=== PATIENT | male | born 1965 | race Caucasian/White ===

== ENCOUNTER 2025-10-12 11:57 | Inpatient (IN) | payer OTHER ==
[~2025-10-12] VITALS: Ht 180.3 cm; Wt 83.3 kg
[2025-10-12] MEDS ORDERED: Diazepam 5 MG / ML 2ML SYR IV ONE ×2 (12:20→13:10)
[2025-10-12 12:38] LABS: Hematocrit 49.0 % (37.0-53.0); Hemoglobin 17.5 g/dL (13.5-17.5); Mean Corpuscular HGB Conc 35.7 g/dL (31.5-36.5); Mean Corpuscular Volume 87 fL (80-100); NRBC ABSOLUTE 0.00 K/mm3 (0.00-0.02); NRBC Auto 0.0 /100 WBC (0.0-0.2); Platelet Count 405 K/mm3 (150-400); RDW Coefficient Variation 13.1 % (11.7-14.2); RDW Standard Deviation 42.0 fL (35.1-46.3)
[2025-10-12 12:57] LABS: BASOPHILS ABSOLUTE MAN 0.32 K/mm3 (0.00-0.23); BASOPHILS PERCENT MAN 2 % (0-2); EOSINOPHILS ABSOLUTE MAN 0.00 K/mm3 (0.00-0.68); EOSINOPHILS PERCENT MAN 0 % (0-6); LYMPHOCYTES ABSOLUTE MAN 4.77 K/mm3 (0.84-5.20); LYMPHOCYTES PERCENT MAN 29 % (21-46); MONOCYTES ABSOLUTE MAN 0.16 K/mm3 (0.16-1.47); MONOCYTES PERCENT MAN 1 % (4-13); NEUTROPHILS ABSOLUTE MAN 11.19 K/mm3 (1.96-9.15); SEG NEUTROPHILS PERCENT MAN 68 % (41-73)
[2025-10-12] MEDS ORDERED: NS 1,000 ML IV SCH ×2 (13:10→20:05)
[2025-10-12] MEDS ORDERED: Ondansetron HCl 2 MG / ML 2ML Vial IV PRN ×2 (13:10→20:10)
[2025-10-12 13:50] LABS: Alanine Aminotransfer (ALT/SGP 65.0 U/L (12-78); Albumin, Blood 4.3 g/dL (3.4-5.0); Albumin/Globulin Ratio 1.1 (0.8-1.8); Anion Gap 24.0 mmol/L (3-11); Aspartate Aminotrans (AST/SGOT 89.0 U/L (12-37); Bilirubin, Total 0.6 mg/dL (0.1-1.0); Blood Urea Nitrogen 11.0 mg/dL (8-24); CO2, Blood 21.0 mmol/L (21-32); Calcium, Blood 9.2 mg/dL (8.5-10.1); Chloride, Blood 96.0 mmol/L (98-108); Creatinine, Blood 0.48 mg/dL (0.60-1.20); Ethanol (Alcohol), Blood, Med 365.0 mg/dL; Globulin, Blood 3.8 g/dL (2.2-4.0); Glucose, Blood 103.0 mg/dL (70-99); Potassium, Blood 3.5 mmol/L (3.5-5.5); Sodium, Blood 137.0 mmol/L (136-145); Total Protein, Blood 8.1 g/dL (6.4-8.2)
[2025-10-12] MEDS ORDERED: NS 1,000 ML BAG IR SCH (14:15)
[2025-10-12 14:31] LABS: pH Blood Venous 7.40 (7.34-7.37)
[2025-10-12 16:00] LABS: Alanine Aminotransfer (ALT/SGP 62.0 U/L (12-78); Albumin, Blood 3.8 g/dL (3.4-5.0); Albumin/Globulin Ratio 1.2 (0.8-1.8); Anion Gap 19.0 mmol/L (3-11); Aspartate Aminotrans (AST/SGOT 76.0 U/L (12-37); Bilirubin, Total 0.6 mg/dL (0.1-1.0); Blood Urea Nitrogen 12.0 mg/dL (8-24); CO2, Blood 25.0 mmol/L (21-32); Calcium, Blood 8.2 mg/dL (8.5-10.1); Chloride, Blood 99.0 mmol/L (98-108); Creatinine, Blood 0.54 mg/dL (0.60-1.20); Globulin, Blood 3.2 g/dL (2.2-4.0); Glucose, Blood 80.0 mg/dL (70-99); Potassium, Blood 2.9 mmol/L (3.5-5.5); Sodium, Blood 140.0 mmol/L (136-145); Total Protein, Blood 7.0 g/dL (6.4-8.2)
[2025-10-12] MEDS ORDERED: LORazepam 2 MG/ML 1ML Injection IV ONE ×2 (17:15→20:00)
[2025-10-12] MEDS ORDERED: DiphenhydrAMINE HCl 50 MG/ML 1ML Vial IV ONE (17:15)
[2025-10-12] MEDS ORDERED: Pantoprazole Sodium 40 MG Injection IV ONE (19:20)
[2025-10-12] MEDS ORDERED: LORazepam 2 MG/ML 1ML Injection IV PRN ×2 (20:10)
[2025-10-12] MEDS ORDERED: FLU VACC TS2025-26(6MOS UP)/PF 45 MCG/0.5 ML SYRINGE IM SCH (20:15)
[2025-10-12 22:11] VITALS: BP 159/103
[2025-10-12] MEDS ORDERED: METFORMIN HCL500 M3 PO (22:44)
[2025-10-13] VITALS (20 sets, daily range): BP systolic 140–174; BP diastolic 86–114
[2025-10-13] MEDS ORDERED: Insulin Human Lispro 100 Units/ML 3ML Syringe SC SCH
[2025-10-13] MEDS ORDERED: OMEP20ER PO (00:57)
[2025-10-13] MEDS ORDERED: ESCI20 PO (00:58)
[2025-10-13] MEDS ORDERED: BUSPIRONE HCL7.5 M6 PO (00:59)
[2025-10-13] MEDS ORDERED: MAGNESIUM OXID400 M1 PO (01:00)
[2025-10-13 03:54] LABS: BASOPHILS ABSOLUTE AUTO 0.14 K/mm3 (0.00-0.23); BASOPHILS PERCENT AUTO 1 % (0-2); EOSINOPHILS ABSOLUTE AUTO 0.25 K/mm3 (0.00-0.68); EOSINOPHILS PERCENT AUTO 2 % (0-6); Hematocrit 38.1 % (37.0-53.0); Hemoglobin 13.6 g/dL (13.5-17.5); IMMATURE GRAN ABSOLUTE AUTO 0.03 K/mm3 (0.00-0.10); IMMATURE GRAN PERCENT AUTO 0 % (0-1); LYMPHOCYTES ABSOLUTE AUTO 2.49 K/mm3 (0.84-5.20); LYMPHOCYTES PERCENT AUTO 23 % (21-46); MONOCYTES ABSOLUTE AUTO 0.54 K/mm3 (0.16-1.47); MONOCYTES PERCENT AUTO 5 % (4-13); Mean Corpuscular HGB Conc 35.7 g/dL (31.5-36.5); Mean Corpuscular Volume 88 fL (80-100); NEUTROPHILS ABSOLUTE AUTO 7.50 K/mm3 (1.96-9.15); NEUTROPHILS PERCENT AUTO 69 % (41-73); NRBC ABSOLUTE 0.00 K/mm3 (0.00-0.02); NRBC Auto 0.0 /100 WBC (0.0-0.2); Platelet Count 226 K/mm3 (150-400); RDW Coefficient Variation 13.1 % (11.7-14.2); RDW Standard Deviation 42.5 fL (35.1-46.3)
[2025-10-13 04:11] LABS: Anion Gap 12.0 mmol/L (3-11); Blood Urea Nitrogen 12.0 mg/dL (8-24); CO2, Blood 29.0 mmol/L (21-32); Calcium, Blood 8.0 mg/dL (8.5-10.1); Chloride, Blood 95.0 mmol/L (98-108); Creatinine, Blood 0.48 mg/dL (0.60-1.20); Glucose, Blood 208.0 mg/dL (70-99); Magnesium, Blood 1.4 mg/dL (1.6-2.4); Potassium, Blood 2.6 mmol/L (3.5-5.5); Sodium, Blood 133.0 mmol/L (136-145)
[2025-10-13] MEDS ORDERED: Magnesium Sulf 2 GM/Water 50ML 50 ML IV ONE (05:30)
[2025-10-13] MEDS ORDERED: Potassium Chl 20MEQ/Water100ML 100 ML IV SCH (06:00)
--- NOTE | 2025-10-13 06:09 | NUR ---
SHIFT SUMMARY PATIENT ARRIVED TO PCU 10 VIA STRETCHER AT 2210. SLIDE TRANSFER COMPLETED. PATIENT ALERT AND ORIENTED X4. MEDICATED PER EMAR FOR ALCOHOL WITHDRAWL. ON ROOM AIR WITH SPO2 >90%. VITAL SIGNS STABLE. NO ACUTE ISSUES NOTED OVERNIGHT. WILL CONTINUE TO MONITOR. CALL LIGHT WITHIN REACH.
[2025-10-13] MEDS ORDERED: LORazepam 2 MG/ML 1ML Injection IV PRN ×2 (08:55→09:00)
[2025-10-13] MEDS ORDERED: Multivitamins 1 Tab PO SCH (09:00)
[2025-10-13] MEDS ORDERED: Folic Acid 1 MG TAB PO SCH (09:00)
[2025-10-13] MEDS ORDERED: Enoxaparin 40 MG/0.4 ML SYR SC SCH (09:00)
[2025-10-13] MEDS ORDERED: HydrALAZINE HCl 20 MG / ML 1ML Vial IV PRN (10:00)
[2025-10-13 10:37] LABS: Anion Gap 12.0 mmol/L (3-11); Blood Urea Nitrogen 10.0 mg/dL (8-24); CO2, Blood 30.0 mmol/L (21-32); Calcium, Blood 8.8 mg/dL (8.5-10.1); Chloride, Blood 97.0 mmol/L (98-108); Creatinine, Blood 0.43 mg/dL (0.60-1.20); Glucose, Blood 198.0 mg/dL (70-99); Potassium, Blood 3.2 mmol/L (3.5-5.5); Sodium, Blood 136.0 mmol/L (136-145)
--- NOTE | 2025-10-13 14:07 | NUR ---
Pt. is awake in bed and welcomes my visit. Pt. is quietly pleasant and displays evidence of being groggy. Facilitated a life review and the pt. verbalized that he has had many stresses in his life and that he lives in [place]. Listen with empathy and interest. Prayed with the Pt. Pt. verbalized gratitude for the spiritual care visit.
[2025-10-13] MEDS ORDERED: Insulin Regular 100 UNIT/ML 10ML Vial SC SCH (18:00)
--- NOTE | 2025-10-13 18:16 | NUR ---
END OF SHIFT SUMMARY PT IS A/O X4, ABLE TO MAKE TO MAKE NEEDS KNOWN AND CAN MOVE EXTREMITIES EQUALLY AND BILATERALLY. PT REPORTS PAIN, MEDICATED PER EMAR. CIWA SCORES RANGE: 10-14, MEDICATED PER EMAR. CONTINUOUS CARDIAC IN PLACE SHOWING SR-ST, SBP 140'S-170'S. HR IN THE 90'S-120'S. PT IS ON RA WITH SP02 >92%. PT HAD A BM THIS SHIFT AND USED URINAL INDEPENDENTLY. PT IS 2 PERSON ASSIST TO BSC. RUE PIV IS IN PLACE. BED IN LOWEST POSITION, CALL LIGHT IN REACH, WILL REPORT TO ONCOMING SHIFT.
[2025-10-14] VITALS (7 sets, daily range): BP systolic 127–165; BP diastolic 90–118
--- NOTE | 2025-10-14 04:41 | NUR ---
ASSUMED CARE OF PT AT 1900. PT ON CIWA PROTOCOL AND RECEIVING ATIVAN AND LIBRIUM PRN. PT HIGHEST CIWA SCORE THIS EVENING WAS 20. PT IS AXOX4 AND ABLE TO USE CALL LIGHT APPROPRIATELY. COMPLAINS OF BODY ACHES ALL OVER AND JUST NOT FEELING WELL. PT HAS BEEN INTERMITTENTLY TACHYCARDIC THROUGHOUT THE NIGHT AND BP ELEVATED WHEN RESTLESS BUT TRENDS DOWN ONCE PRN MEDS ADMINISTERED. ALL OTHER VSS. BED IN LOWEST POSITION AND CALL LIGHT WITHIN REACH
[2025-10-14 04:57] LABS: BASOPHILS ABSOLUTE AUTO 0.06 K/mm3 (0.00-0.23); BASOPHILS PERCENT AUTO 1 % (0-2); EOSINOPHILS ABSOLUTE AUTO 0.29 K/mm3 (0.00-0.68); EOSINOPHILS PERCENT AUTO 3 % (0-6); Hematocrit 38.9 % (37.0-53.0); Hemoglobin 13.7 g/dL (13.5-17.5); IMMATURE GRAN ABSOLUTE AUTO 0.03 K/mm3 (0.00-0.10); IMMATURE GRAN PERCENT AUTO 0 % (0-1); LYMPHOCYTES ABSOLUTE AUTO 2.07 K/mm3 (0.84-5.20); LYMPHOCYTES PERCENT AUTO 24 % (21-46); MONOCYTES ABSOLUTE AUTO 0.36 K/mm3 (0.16-1.47); MONOCYTES PERCENT AUTO 4 % (4-13); Mean Corpuscular HGB Conc 35.2 g/dL (31.5-36.5); Mean Corpuscular Volume 88 fL (80-100); NEUTROPHILS ABSOLUTE AUTO 5.99 K/mm3 (1.96-9.15); NEUTROPHILS PERCENT AUTO 68 % (41-73); NRBC ABSOLUTE 0.00 K/mm3 (0.00-0.02); NRBC Auto 0.0 /100 WBC (0.0-0.2); Platelet Count 159 K/mm3 (150-400); RDW Coefficient Variation 12.9 % (11.7-14.2); RDW Standard Deviation 41.9 fL (35.1-46.3)
[2025-10-14 05:15] LABS: Alanine Aminotransfer (ALT/SGP 49.0 U/L (12-78); Albumin, Blood 3.1 g/dL (3.4-5.0); Albumin/Globulin Ratio 1.0 (0.8-1.8); Anion Gap 7.0 mmol/L (3-11); Aspartate Aminotrans (AST/SGOT 55.0 U/L (12-37); Bilirubin, Total 1.0 mg/dL (0.1-1.0); Blood Urea Nitrogen 6.0 mg/dL (8-24); CO2, Blood 30.0 mmol/L (21-32); Calcium, Blood 8.5 mg/dL (8.5-10.1); Chloride, Blood 102.0 mmol/L (98-108); Creatinine, Blood 0.38 mg/dL (0.60-1.20); Globulin, Blood 3.2 g/dL (2.2-4.0); Glucose, Blood 186.0 mg/dL (70-99); Potassium, Blood 2.7 mmol/L (3.5-5.5); Sodium, Blood 136.0 mmol/L (136-145); Total Protein, Blood 6.3 g/dL (6.4-8.2)
[2025-10-14 05:33] LABS: Magnesium, Blood 1.4 mg/dL (1.6-2.4)
[2025-10-14] MEDS ORDERED: Magnesium Sulf 2 GM/Water 50ML 50 ML IV ONE (06:15)
[2025-10-14] MEDS ORDERED: Insulin Glargine 100 Unit/ML 3 ML SYR SC SCH (09:00)
[2025-10-14] MEDS ORDERED: Insulin Human Lispro 100 Units/ML 3ML Syringe SC SCH (12:00)
[2025-10-14] MEDS ORDERED: ALOGLIPTIN25 M7 PO (12:28)
[2025-10-14] MEDS ORDERED: PROAIR RESPICL90 MCG INH (12:29)
[2025-10-14] MEDS ORDERED: OMEP20ER PO (12:30)
[2025-10-14] MEDS ORDERED: ESCI20 PO (12:31)
--- NOTE | 2025-10-14 16:39 | NUR ---
UPDATE PT CALLED AND ASKED FOR UPDATE AND CLARIFICATION ON TREATMENT PLAN. PT UPDATED AND WITHDRAWAL PROTOCOL EXPLAINED TO PT .
--- NOTE | 2025-10-14 18:47 | NUR ---
SHIFT SUMMARY PT A/OX3. PT FOLLOWING COMMANDS AND USING CALL LIGHT APPROPIATE. PT EXPRESSED ANXIETY THROUGHOUT SHIFT ASKING FOR "ANXIETY SHOT" FREQUENTLY. PT CIWA RANGE 2-15, TREATED PER PROTOCOL. PT EXPRESSED FRUSTRATION ABOUT TREATMENT PLAN STATING THAT HE DID NOT FEEL THOUGH STAFF WAS GIVING ENOUGH ANXIETY MEDICATIONS. PT EDUCATED ON PROTOCOL AND MAX DOSES AVAILABLE. PT USING URINAL IN BED. PT UPDATED ON PLAN OF CARE. PT EXPRESSED THAT HE WAS WANTING TO LEAVE AMA, PT EDUCATED ON RISKS OF LEAVING AMA, PT CURRENTLY AGREEBLE TO STAY. PT INDEPENDENT IN BED.
[2025-10-14 20:28] LABS: Anion Gap 11.0 mmol/L (3-11); Blood Urea Nitrogen 6.0 mg/dL (8-24); CO2, Blood 27.0 mmol/L (21-32); Calcium, Blood 8.8 mg/dL (8.5-10.1); Chloride, Blood 100.0 mmol/L (98-108); Creatinine, Blood 0.54 mg/dL (0.60-1.20); Glucose, Blood 257.0 mg/dL (70-99); Potassium, Blood 3.2 mmol/L (3.5-5.5); Sodium, Blood 135.0 mmol/L (136-145)
[2025-10-15 04:42] VITALS: BP 144/99
--- NOTE | 2025-10-15 05:12 | NUR ---
PT AXOX4 AND ABLE TO USE CALL LIGHT APPROPRIATELY. PT REMAINS ON CIWA PROTOCOL. CIWA SCORE HAS RANGED BETWEEN 1-9 THROUGHOUT THE NIGHT. NOT REQUIRING PRN CIWA MEDS FREQUENTLY. MALEWICK ON AND IN PLACE. PT CONTINUING TO DUMP URINE. K+ WAS RECHECKED AT THE START OF SHIFT AND WAS 3.2. POTASSIUM REPLACED AND AWAITING RECHECK RESULTS. BP OCCASIONALLY ELEVATED BUT NOT REQUIRING PRN BP MEDS. BED IN LOWEST POSITION AND CALL LIGHT WITHIN REACH.
[2025-10-15 06:21] LABS: Alanine Aminotransfer (ALT/SGP 58.0 U/L (12-78); Albumin, Blood 2.9 g/dL (3.4-5.0); Albumin/Globulin Ratio 1.0 (0.8-1.8); Anion Gap 8.0 mmol/L (3-11); Aspartate Aminotrans (AST/SGOT 58.0 U/L (12-37); Bilirubin, Total 0.4 mg/dL (0.1-1.0); Blood Urea Nitrogen 7.0 mg/dL (8-24); CO2, Blood 26.0 mmol/L (21-32); Calcium, Blood 8.4 mg/dL (8.5-10.1); Chloride, Blood 103.0 mmol/L (98-108); Creatinine, Blood 0.44 mg/dL (0.60-1.20); Globulin, Blood 3.0 g/dL (2.2-4.0); Glucose, Blood 261.0 mg/dL (70-99); Magnesium, Blood 1.3 mg/dL (1.6-2.4); Phosphorus, Blood 3.2 mg/dL (2.5-4.9); Potassium, Blood 2.9 mmol/L (3.5-5.5); Sodium, Blood 134.0 mmol/L (136-145); Total Protein, Blood 5.9 g/dL (6.4-8.2)
[2025-10-15] MEDS ORDERED: Magnesium Sulf 2 GM/Water 50ML 50 ML IV SCH (06:45)
[2025-10-15] MEDS ORDERED: Magnesium Sulf 2 GM/Water 50ML 50 ML IV ONE (07:05)
[2025-10-15 07:17] VITALS: BP 164/111
[2025-10-15] MEDS ORDERED: Potassium Chl 20MEQ/Water100ML 100 ML IV STA (08:46)
[2025-10-15 10:42] VITALS: BP 156/105
--- NOTE | 2025-10-15 12:00 | NUR ---
REPORT GIVEN TO JIN LANCE TO ASSUME CARE.
[2025-10-15 13:56] VITALS: BP 141/102
--- NOTE | 2025-10-15 14:13 | NUR ---
TRANSFER OF CARE ASSUMED CARE OF PT APPROX 1230. PT ALERT, ABLE TO MAKE NEEDS KNOWN. VSS, HTN NOTED. UP TO CHAIR WITH PT. CIWA 10, MEDICATED WITH LIBRIUM PER EMAR. PT IN RECLINER WATCHING TV, CALL LIGHT IN REACH.
[2025-10-15 16:17] VITALS: BP 130/112
--- NOTE | 2025-10-15 16:58 | NUR ---
SHIFT SUMMARY NO ACUTE CHANGES SINCE CARE ASSUMPTION. VSS. PT AMBULATED W/ ASSISTANCE FROM RECLINER BACK TO BED. AWAITING DINNER. FOLLOWING COMMANDS AND USING CALL LIGHT APPRORPRIATELY. CALL LIGHT IN REACH, BED ALARM ON
[2025-10-15 19:28] VITALS: BP 154/105
[2025-10-16] VITALS (7 sets, daily range): BP systolic 130–164; BP diastolic 82–126
--- NOTE | 2025-10-16 05:00 | NUR ---
NOC SHIFT SUMMARY PT IS ALERT, ORIENTATED TO SITUATION, DATE (ASIDE FROM DAY0, HE KNOWNS HE IS IN THE HOSPITAL BUT WAS UNSURE OF THE NAME OR CITY HE WAS IN. HE EXPLAINED HES NOT FROM THIS AREA AND CAME HERE FOR REHAB. HE IS KIND AND COOPERATIVE WITH CARES, ABLE TO MAKE HIS NEEDS KNOWN TO STAFF. HE IS WEAK OVERALL AND BEEN IN BED THIS SHIFT, ABLE TO REPOSTION SELF. PURWICK IN PLACE DRAINING TO SUCTION. BED BATH COMPLETED AND LIEN CHANGED TONIGHT. RA SATTING >90%. BP ELAVATED, DENIES CHEST PAIN OR PRESSURE. CIWA 3-7, MEDICATED PER EMAR. IV FLUIDS INFUSING. BED IN LOWEST POSTION, BED ALARM ON FOR SAFETY. CALL LIGHT IN REACH.
[2025-10-16 05:35] LABS: Alanine Aminotransfer (ALT/SGP 84.0 U/L (12-78); Albumin, Blood 2.9 g/dL (3.4-5.0); Albumin/Globulin Ratio 1.0 (0.8-1.8); Anion Gap 7.0 mmol/L (3-11); Aspartate Aminotrans (AST/SGOT 72.0 U/L (12-37); Bilirubin, Total 0.4 mg/dL (0.1-1.0); Blood Urea Nitrogen 6.0 mg/dL (8-24); CO2, Blood 26.0 mmol/L (21-32); Calcium, Blood 8.4 mg/dL (8.5-10.1); Chloride, Blood 105.0 mmol/L (98-108); Creatinine, Blood 0.43 mg/dL (0.60-1.20); Globulin, Blood 2.9 g/dL (2.2-4.0); Glucose, Blood 222.0 mg/dL (70-99); Magnesium, Blood 1.3 mg/dL (1.6-2.4); Potassium, Blood 2.9 mmol/L (3.5-5.5); Sodium, Blood 135.0 mmol/L (136-145); Total Protein, Blood 5.8 g/dL (6.4-8.2)
[2025-10-16] MEDS ORDERED: Magnesium Sulf 2 GM/Water 50ML 50 ML IV ONE (10:15)
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
[2025-10-16] MEDS ORDERED: Nystatin 100,000 Unit/ML Susp 5 ML UDC SS SCH (21:00)
[2025-10-17 03:06] VITALS: BP 157/99
[2025-10-17 05:11] LABS: Anion Gap 12.0 mmol/L (3-11); Blood Urea Nitrogen 7.0 mg/dL (8-24); CO2, Blood 24.0 mmol/L (21-32); Calcium, Blood 8.3 mg/dL (8.5-10.1); Chloride, Blood 102.0 mmol/L (98-108); Creatinine, Blood 0.44 mg/dL (0.60-1.20); Glucose, Blood 287.0 mg/dL (70-99); Magnesium, Blood 1.4 mg/dL (1.6-2.4); Phosphorus, Blood 3.7 mg/dL (2.5-4.9); Potassium, Blood 3.3 mmol/L (3.5-5.5); Sodium, Blood 135.0 mmol/L (136-145)
--- NOTE | 2025-10-17 05:36 | NUR ---
SHIFT SUMMARY PT A&O X4, CALM, COOPERATIVE TO CARE. CIWAS PER PROTOCOL. PT MEDICATED X1 T/O NIGHT, SEE EMAR. PT MEDICAL NO TELE. HE DENIES ANY CP/PRESSURE, SBP IN THE 140'S. PT ON RA, SpO2 >92%, HE DENIES ANY SOB. PT HAS PUREWICK IN PLACE. PT ABLE TO CONTACT DAUGHTER T/O NIGHT AND UPDATE HER ON SITUATION. PT UP IN RECLINER AT THIS TIME. HE DENIES ANY QUESTIONS OR CONCERNS. WILL MONITOR PT AND REPORT TO ONCOMING RN.
[2025-10-17] MEDS ORDERED: Magnesium Sulf 2 GM/Water 50ML 50 ML IV ONE (06:30)
[2025-10-17 07:27] VITALS: BP 141/106
--- NOTE | 2025-10-17 14:13 | NUR ---
"Spiritual care | Nurse Request At the request of the Pts. Attending nurse, I visit the Pt. who is dressed in bed awaiting discharge when he welcomes my visit. Pt. is pleasant. Pt. shares that he is not looking forard to going home, but that he is lookingforward to his daughter to come get him in two days. Listen with empathy and a calming presence. Considered matters of magy and belief. Pt. verbalizes that he feels that he has recieved excellent care. Prayed with Pt. for safety and guidance as he discharges. Pt. verbalized gratitude fo rthe spiritual care visit and shook this payroll assistant's hand."
[2025-10-17 15:47] VITALS: BP 127/92
[2025-10-17] MEDS ORDERED: GABA300 PO (16:50)
[2025-10-17] MEDS ORDERED: CATAPRES0.2 M1 PO (16:50)
[2025-10-17] MEDS ORDERED: B-1100 M1 PO (16:53)
[2025-10-17] MEDS ORDERED: NYSTATIN100000 U10 MT (16:53)
[2025-10-17] MEDS ORDERED: ONE DAILY MUL400 MCG PO (16:57)
--- NOTE | 2025-10-17 17:26 | NUR ---
Shift summary: Assumed care at 0700. A&Ox4, ambulated in room with steady gait. Up to the shower, independent in ADLS. No signs of ETOH withdrawal throughout shift. Provided clean clothes at discharge, patient discharged with [facility] for safe shelter[facility]. RX faxed to [facility], to be picked up by advocate tomorrow. DC from unit via wheelchair with personal belongings.
== END 2025-10-17 17:13 | disposition home or self-care (01) | DRG 897 ==
LOC: ER 11:57 → PCU 20:04
PROVIDERS: Emergency Medicine; Internal Medicine; Nurse Practitioner Acute Care; Student in an Organized Health Care Education/Training Program; ADMIT Internal Medicine
PROC: HZ2ZZZZ Detoxification Services for Substance Abuse Treatment (ICD-10-PCS; principal; 2025-10-12)
DX: F10.239 Alcohol dependence with withdrawal, unspecified (principal); R65.10 Systemic inflammatory response syndrome (SIRS) of non-infectious origin without acute organ dysfunction; E87.20 Acidosis, unspecified; F10.229 Alcohol dependence with intoxication, unspecified; E11.9 Type 2 diabetes mellitus without complications; E87.6 Hypokalemia; R74.01 Elevation of levels of liver transaminase levels; E83.42 Hypomagnesemia; I10 Essential (primary) hypertension; E88.89 Other specified metabolic disorders; F41.9 Anxiety disorder, unspecified
CPT/HCPCS: 36415; 71046; 80048; 80053; 80320; 82803; 82947; 83735; 84100; 84132; 85025; 93005; 93010; 96372-59; 96374; 96375; 97116; 97161; 97165; 99285-25; A9270; J0360; J1200; J1650; J1815; J2060; J2405; J2470; J3360; J3475; J3480; J7030